=== PATIENT | male | born 1945 | race Caucasian/White ===

== ENCOUNTER 2022-05-05 13:21 | Observation (INO) ==
[2022-05-05] MEDS ORDERED: ONDANSETRON 4 MG/2 ML VIAL IV ONE (13:47)
[2022-05-05] MEDS ORDERED: MECLIZINE 25 MG TABLET PO STA (13:47)
[2022-05-05 13:54] LABS: Basophils % 0.3 % (0.0-0.8); Eosinophils # 0.1 10*3/uL (0.0-0.87); Hematocrit 45.3 VOL% (42.0-52.0); Hemoglobin 14.5 GM/DL (14.0-18.0); Immature Granulocytes % 0.8 %; Immature Granulocytes Absolute 0.07 #; Lymphocytes # 1.1 10*3/uL (1.4-4.0); Lymphocytes % 11.7 % (21.2-54.2); Mean Corpuscular Volume 89.5 FL (87-102); Mean Platelet Volume 11.2 FL (9.6-12.0); Monocytes # 0.5 10*3/uL (0.11-0.8); Monocytes % 5.4 % (1.7-12.7); Neutrophils % 80.8 % (38.7-73.9); Platelet Count 159 T/CUMM (130-400); Red Blood Count 5.06 MC/CUMM (3.8-5.5); Red Cell Distribution Width 15.9 % (9.3-17.3); White Blood Count 9.3 T/CUMM (4-12)
[2022-05-05 14:00] LABS: PT Patient Result 10.7 SECS (10.1-12.1)
[2022-05-05 14:11] LABS: Albumin 3.7 G/DL (3.4-5.0); Bilirubin,Total 0.5 MG/DL (0.20-1.00); Calcium 9.1 MG/DL (8.5-10.1); Osmolality,Calculated 294.7 MOS/KG (273-304); Potassium 5.5 MMOL/L (3.5-5.1); Total Protein 7.4 G/DL (6.4-8.2)
[2022-05-05] MEDS ORDERED: ASPIRIN 325 MG TABLET PO STA (14:15)
[2022-05-05] MEDS ORDERED: GLUCAGON 1 MG VIAL IM PRN (15:41)
[2022-05-05] MEDS ORDERED: ONDANSETRON 4 MG/2 ML VIAL IV PRN (15:41)
[2022-05-05] MEDS ORDERED: PROMETHAZINE 25 MG/1 ML VIAL IM PRN (15:41)
[2022-05-05] MEDS ORDERED: INSULIN REGULAR 10 UNIT, CALCIUM GLUCONATE 1,000 MG in DEXTROSE 10% 250 ML IV ONE (15:50)
[2022-05-05] MEDS ORDERED: DEXTROSE 10% 250 ML BAG IV PRN (15:52)
[2022-05-05] MEDS ORDERED: SODIUM CHLORIDE 0.9% 1,000 ML IV SCH (16:00)
[2022-05-05] MEDS: INSULIN REGULAR 100 UNIT/ML SUBCUT SCH ×2 (18:37→21:40)
[2022-05-05] MEDS: MECLIZINE 25 MG TABLET PO SCH (21:20)
[2022-05-06 05:44] LABS: Basophils % 0.5 % (0.0-0.8); Eosinophils # 0.3 10*3/uL (0.0-0.87); Eosinophils % 3.9 % (0.00-10.9); Hematocrit 42.4 VOL% (42.0-52.0); Hemoglobin 13.5 GM/DL (14.0-18.0); Immature Granulocytes % 0.5 %; Immature Granulocytes Absolute 0.04 #; Lymphocytes # 1.3 10*3/uL (1.4-4.0); Lymphocytes % 16.8 % (21.2-54.2); Mean Corpuscular HGB Conc 31.8 GM/DL (32-36); Mean Corpuscular Volume 89.8 FL (87-102); Mean Platelet Volume 11.2 FL (9.6-12.0); Monocytes # 0.7 10*3/uL (0.11-0.8); Monocytes % 9.7 % (1.7-12.7); Neutrophils % 68.6 % (38.7-73.9); Platelet Count 139 T/CUMM (130-400); Red Blood Count 4.72 MC/CUMM (3.8-5.5); Red Cell Distribution Width 15.9 % (9.3-17.3); White Blood Count 7.6 T/CUMM (4-12)
[2022-05-06 06:05] LABS: Alanine Aminotransferase 24 U/L (16-61); Albumin 3.2 G/DL (3.4-5.0); Alkaline Phosphatase 70 U/L (45-117); Aspartate Amino Transferase 12 U/L (0-37); Bilirubin,Total < 0.39 MG/DL (0.20-1.00); Blood Urea Nitrogen 46 MG/DL (7-18); Calcium 8.8 MG/DL (8.5-10.1); Carbon Dioxide 20 MMOL/L (21-32); Chloride 113 MMOL/L (98-107); Glucose 169 MG/DL (74-106); Osmolality,Calculated 296.3 MOS/KG (273-304); Potassium 4.6 MMOL/L (3.5-5.1); Sodium 141 MMOL/L (136-145); Total Protein 6.4 G/DL (6.4-8.2)
[2022-05-06 06:32] LABS: Mucus,Urine Occasional /LPF (Occasional); Protein,Urine 30 mg/dL (Negative); Urine Appearance Clear (Clear); Urine Color Yellow (Yellow); Urine pH 5.5 (4.5-8.0)
[2022-05-06 06:33] LABS: Bilirubin,Urine Negative (Negative); Blood, Urine Negative (Negative); Glucose,Urine (UA) 500 mg/dL (Negative); Ketones,Urine Negative (Negative); Nitrite,Urine Negative (Negative); Urine Urobilinogen 0.2 eU/dL (<2.0)
[2022-05-06] MEDS: SODIUM CHLORIDE 0.9% 1,000 ML IV SCH ×2 (09:13→19:24)
[2022-05-06] MEDS: MECLIZINE 25 MG TABLET PO SCH ×3 (09:14→20:15)
[2022-05-06] MEDS: INSULIN REGULAR 100 UNIT/ML SUBCUT SCH ×4 (09:14→20:15)
[2022-05-06] MEDS: PANTOPRAZOLE 40 MG TABLET PO SCH (09:14)
[2022-05-06] MEDS: ENOXAPARIN 40 MG/0.4 ML SYRINGE SUBCUT SCH (09:14)
[2022-05-06] MEDS ORDERED: NITROGLYCERIN SL 0.4 MG TABLET SL PRN (09:28)
[2022-05-06] MEDS: EZETIMIBE 10 MG TABLET PO SCH (11:36)
[2022-05-06] MEDS: CLOPIDOGREL 75 MG TABLET PO SCH (11:36)
[2022-05-06] MEDS: ASPIRIN EC 81 MG TABLET PO SCH (11:36)
[2022-05-06] MEDS: INSULIN GLARGINE 100 UNIT/ML SUBCUT SCH (11:37)
[2022-05-06] MEDS: carvediloL 3.125 MG TABLET PO SCH ×2 (13:23→18:14)
[2022-05-06] MEDS: RANOLAZINE 500 MG TABLET PO SCH (20:15)
[2022-05-06] MEDS: SODIUM BICARBONATE 650 MG TABLET PO SCH (20:15)
[2022-05-06] MEDS ORDERED: ATORVASTATIN 80 MG TABLET PO SCH (21:00)
[2022-05-07] MEDS ORDERED: ACETAMINOPHEN 325 MG TABLET PO PRN (03:56)
[2022-05-07] MEDS: SODIUM CHLORIDE 0.9% 1,000 ML IV SCH (04:30)
[2022-05-07 06:03] LABS: Basophils # 0.1 10*3/uL (0.0-0.2); Basophils % 0.8 % (0.0-0.8); Eosinophils # 0.4 10*3/uL (0.0-0.87); Eosinophils % 5.1 % (0.00-10.9); Hematocrit 42.1 VOL% (42.0-52.0); Hemoglobin 13.2 GM/DL (14.0-18.0); Immature Granulocytes % 0.6 %; Immature Granulocytes Absolute 0.04 #; Lymphocytes # 1.5 10*3/uL (1.4-4.0); Lymphocytes % 21.1 % (21.2-54.2); Mean Corpuscular HGB Conc 31.4 GM/DL (32-36); Mean Corpuscular Volume 90.5 FL (87-102); Monocytes # 0.7 10*3/uL (0.11-0.8); Neutrophils % 62.4 % (38.7-73.9); Platelet Count 131 T/CUMM (130-400); Red Blood Count 4.65 MC/CUMM (3.8-5.5); Red Cell Distribution Width 15.9 % (9.3-17.3); White Blood Count 7.1 T/CUMM (4-12)
[2022-05-07 06:15] LABS: Calcium 8.5 MG/DL (8.5-10.1); Osmolality,Calculated 293.3 MOS/KG (273-304); Potassium 4.4 MMOL/L (3.5-5.1)
[2022-05-07] MEDS ORDERED: allopurinoL 300 MG TABLET PO SCH (09:00)
[2022-05-07] MEDS ORDERED: ISOSORBIDE MONONITRATE 30 MG TABLET PO SCH ×2 (09:00)
[2022-05-07] MEDS: SODIUM BICARBONATE 650 MG TABLET PO SCH (10:25)
[2022-05-07] MEDS: EZETIMIBE 10 MG TABLET PO SCH (10:26)
[2022-05-07] MEDS: RANOLAZINE 500 MG TABLET PO SCH (10:26)
[2022-05-07] MEDS: carvediloL 3.125 MG TABLET PO SCH (10:27)
[2022-05-07] MEDS: ASPIRIN EC 81 MG TABLET PO SCH (10:27)
[2022-05-07] MEDS: CLOPIDOGREL 75 MG TABLET PO SCH (10:27)
[2022-05-07] MEDS: MECLIZINE 25 MG TABLET PO SCH (10:27)
[2022-05-07] MEDS: PANTOPRAZOLE 40 MG TABLET PO SCH (10:28)
[2022-05-07] MEDS: ENOXAPARIN 40 MG/0.4 ML SYRINGE SUBCUT SCH (10:28)
[2022-05-07] MEDS: INSULIN REGULAR 100 UNIT/ML SUBCUT SCH (10:28)
[2022-05-07] MEDS: INSULIN GLARGINE 100 UNIT/ML SUBCUT SCH (12:08)
[2022-05-07 13:33] VITALS: BP 139/68
== END 2022-05-07 13:25 | disposition home health service (06) ==
LOC: N.EDINP 13:21 → N.ED 13:21 → SUATTDRO 15:41 → N.TELEN 17:30
PROVIDERS: ADMIT Internal Medicine; ATTEND Phlebology